=== PATIENT | female | born 2000 | race Caucasian/White ===

== ENCOUNTER 2019-10-31 23:26 | Observation (INO) | payer MEDICAID ==
[~2019-10-31] VITALS: Ht 165.1 cm; Wt 68.0 kg
[2019-11-01] MEDS ORDERED: PREN-182 PO ×2 (00:56→21:53)
== END 2019-11-01 01:30 | disposition home or self-care (01) ==
LOC: 8 EST LDRP 23:26
PROVIDERS: ADMIT Obstetrics & Gynecology; ATTEND Obstetrics & Gynecology
DX: O26.893 Other specified pregnancy related conditions, third trimester (principal); R10.30 Lower abdominal pain, unspecified; Z3A.38 38 weeks gestation of pregnancy
CPT/HCPCS: 99281; G0378

== ENCOUNTER 2019-11-01 20:21 | Observation (INO) | payer MEDICAID ==
[~2019-11-01 20:21] MED LIST: PREN-182 PO
[2019-11-01] MEDS ORDERED: PREN-182 PO (21:53)
== END 2019-11-01 22:50 | disposition home or self-care (01) ==
LOC: 8 EST LDRP 20:21 → INTOOBSV 20:21
PROVIDERS: ADMIT Obstetrics & Gynecology; ATTEND Obstetrics & Gynecology
DX: O26.893 Other specified pregnancy related conditions, third trimester (principal); R10.9 Unspecified abdominal pain; R10.2 Pelvic and perineal pain; Z3A.38 38 weeks gestation of pregnancy
CPT/HCPCS: 99281; G0378

== ENCOUNTER 2019-11-07 19:06 | Inpatient (IN) | payer MEDICAID ==
[~2019-11-07] VITALS: Ht 165.1 cm; Wt 72.6 kg
[2019-11-07] MEDS ORDERED: FERR-71 PO ×2 (20:10)
[2019-11-07] MEDS ORDERED: LACTATED RINGERS 500ML 500 ML IV SCH (20:10)
[2019-11-07] MEDS ORDERED: DEXT 5%/LR + PITOCIN 20UNITS/L 1,000 ML IV SCH (20:10)
[2019-11-07] MEDS ORDERED: BUTORPHANOL TARTRATE 2 MG/ML VIAL IV PRN (20:15)
[2019-11-07] MEDS ORDERED: LIDOCAINE HCL 1% 20ML VIAL (Pyxis) INJ INFIL SCH (20:15)
[2019-11-07] MEDS ORDERED: METHYLERGONOVINE MALEATE 0.2 MG/ML IM PRN (20:15)
[2019-11-07] MEDS ORDERED: NALOXONE HCL 0.4 MG/ML 1ML VIAL IM PRN (20:15)
[2019-11-07 21:11] LABS: BASOPHILS % 0.4 % (0.0-2.0); EOSINOPHILS % 0.6 % (0.0-5.0); HEMATOCRIT. 32.7 % (36.0-48.0); HEMOGLOBIN. 11.3 g/dL (12.0-16.0); LYMPHOCYTES % 23.7 % (20.0-50.0); MEAN CORPUSCULAR VOLUME 83.8 fL (81.0-99.0); MEAN PLATELET VOLUME 9.6 fl (7.4-10.4); MONOCYTES % 7.6 % (2.0-8.0); NEUTROPHILS % 67.7 % (40.0-76.0); PLATELET 217 x1000/uL (130-400); RED CELL DISTRIBUTION WIDTH 13.6 % (11.6-14.6)
[2019-11-07 21:17] LABS: INR 0.9; PARTIAL THROMBOPLASTIN TIME 25.8 sec (23.4-31.0); PROTHROMBIN TIME 9.5 sec (9.6-11.0)
[2019-11-07 21:18] LABS: CLARITY URINE TURBID (CLEAR); COLOR URINE YELLOW (YELLOW); KETONES URINE NEGATIVE (NEGATIVE); LEUKOCYTE ESTERASE URINE NEGATIVE (NEGATIVE); NITRITE URINE NEGATIVE (NEGATIVE); OCCULT BLOOD URINE NEGATIVE (NEGATIVE); PH URINE 7.5 (4.5-8.0); PROTEIN URINE NEGATIVE (NEGATIVE); SPECIFIC GRAVITY URINE 1.015 (1.005-1.030)
[2019-11-07 21:29] LABS: *AMPHETAMINES SCREEN URINE NEGATIVE (NEGATIVE); *BARBITURATES SCREEN URINE NEGATIVE (NEGATIVE); *BENZODIAZEPINES SCREEN URINE NEGATIVE (NEGATIVE); *COCAINE SCREEN URINE NEGATIVE (NEGATIVE); METHADONE URINE SCREEN NEGATIVE (NEGATIVE); OPIATES URINE SCREEN NEGATIVE (NEGATIVE); PHENCYCLIDINE URINE SCREEN NEGATIVE (NEGATIVE)
[2019-11-07 21:30] LABS: CANNABINOID URINE SCREEN NEGATIVE (NEGATIVE)
[2019-11-07 21:52] LABS: HEPATITIS B SURFACE ANTIGEN NEGATIVE
[2019-11-07] MEDS ORDERED: INFLUENZA VIRUS VACCINE(AFLURIA) 0.5ML SYR IM ONE (23:45)
[2019-11-08] MEDS ORDERED: ROPIVACAINE HCL/PF EPIDURAL 200 ML EPI ONE (11:31)
[2019-11-08] MEDS ORDERED: FENTANYL CITRATE/PF 50MCG/ML 2ML VIAL ONE (11:58)
[2019-11-08] MEDS ORDERED: DEXT 5%/LR + PITOCIN 20UNITS/L 1,000 ML IV SCH (12:42)
[2019-11-08] MEDS ORDERED: RHO(D) IMMUNE GLOBULIN 300 MCG/SYR IM PRN (12:45)
[2019-11-08] MEDS ORDERED: IBUPROFEN 400MG TABLET PO PRN (12:45)
[2019-11-08] MEDS ORDERED: IBUPROFEN 800MG TABLET PO PRN (12:45)
[2019-11-08 16:00] VITALS: BP 103/50
[2019-11-08 16:30] VITALS: BP 99/55
[2019-11-08 17:00] VITALS: BP 101/52
[2019-11-08 22:00] VITALS: BP 98/59
[2019-11-09 05:34] VITALS: BP 106/54
[2019-11-09 07:37] LABS: BASOPHILS % 0.3 % (0.0-2.0); EOSINOPHILS % 0.3 % (0.0-5.0); HEMATOCRIT. 29.3 % (36.0-48.0); HEMOGLOBIN. 9.9 g/dL (12.0-16.0); MEAN CORPUSCULAR HEMOGLOBIN 28.5 pg (28.0-32.0); MEAN CORPUSCULAR VOLUME 84.6 fL (81.0-99.0); MEAN PLATELET VOLUME 9.3 fl (7.4-10.4); MONOCYTES % 7.4 % (2.0-8.0); PLATELET 209 x1000/uL (130-400); RED BLOOD CELL COUNT 3.46 mill/uL (4.2-5.4); RED CELL DISTRIBUTION WIDTH 13.6 % (11.6-14.6)
[2019-11-09 10:15] VITALS: BP 110/60
[2019-11-09 22:00] VITALS: BP 105/62
[2019-11-10 06:00] VITALS: BP 103/60
[2019-11-10 08:00] VITALS: BP 104/61
== END 2019-11-10 11:14 | disposition home or self-care (01) | DRG 560 ==
LOC: 8 EST LDRP 19:06 → OBSVTOIN 19:06 → 8EST 11-08 15:30
PROVIDERS: ADMIT Obstetrics & Gynecology; ATTEND Obstetrics & Gynecology
PROC: 10D07Z6 Extraction of Products of Conception, Vacuum, Via Natural or Artificial Opening (ICD-10-PCS; principal; 2019-11-08)
PROC: 00HU33Z Insertion of Infusion Device into Spinal Canal, Percutaneous Approach (ICD-10-PCS; 2019-11-08)
PROC: 3E0R3BZ Introduction of Anesthetic Agent into Spinal Canal, Percutaneous Approach (ICD-10-PCS; 2019-11-08)
PROC: 10907ZC Drainage of Amniotic Fluid, Therapeutic from Products of Conception, Via Natural or Artificial Opening (ICD-10-PCS; 2019-11-08)
DX: O69.1XX0 Labor and delivery complicated by cord around neck, with compression, not applicable or unspecified (principal); Z37.0 Single live birth; Z3A.39 39 weeks gestation of pregnancy
CPT/HCPCS: 36415; 80305; 81003; 85025; 86592; 86703; 86762; 86850; 86900; 87340; 90686; 99281; G0378; J0595; J2310; J2590; J2795; J3010; J3490; J7120; A4315

== ENCOUNTER 2021-12-26 14:19 | Observation (INO) | payer MEDICAID ==
[~2021-12-26] VITALS: Ht 71.1 cm; Wt 58.0 kg
[2021-12-26] MEDS ORDERED: AZITHROMYCIN 500 MG TABLET PO NR (16:30)
[2021-12-26 19:22] LABS: CLARITY URINE CLEAR (CLEAR); COLOR URINE YELLOW (YELLOW); KETONES URINE NEGATIVE (NEGATIVE); LEUKOCYTE ESTERASE URINE 3+ (NEGATIVE); NITRITE URINE NEGATIVE (NEGATIVE); OCCULT BLOOD URINE NEGATIVE (NEGATIVE); PH URINE 6.5 (4.5-8.0); PROTEIN URINE NEGATIVE (NEGATIVE); SPECIFIC GRAVITY URINE 1.007 (1.005-1.030); UROBILINOGEN URINE 0.2 E.U./dL (0.2-1.0)
== END 2021-12-26 17:40 | disposition home or self-care (01) ==
LOC: 8 EST LDRP 14:19
PROVIDERS: ADMIT Obstetrics & Gynecology; ATTEND Obstetrics & Gynecology
DX: O26.893 Other specified pregnancy related conditions, third trimester (principal); R10.9 Unspecified abdominal pain; O62.9 Abnormality of forces of labor, unspecified; Z3A.35 35 weeks gestation of pregnancy
CPT/HCPCS: 59025; 76805; 76818; 81003; G0378; 99281

== ENCOUNTER 2022-01-05 17:52 | Observation (INO) | payer MEDICAID ==
[~2022-01-05] VITALS: Ht 172.7 cm; Wt 70.8 kg
[2022-01-05 19:09] LABS: CLARITY URINE CLEAR (CLEAR); COLOR URINE YELLOW (YELLOW); KETONES URINE NEGATIVE (NEGATIVE); LEUKOCYTE ESTERASE URINE 2+ (NEGATIVE); NITRITE URINE NEGATIVE (NEGATIVE); OCCULT BLOOD URINE NEGATIVE (NEGATIVE); PROTEIN URINE NEGATIVE (NEGATIVE); SPECIFIC GRAVITY URINE 1.015 (1.005-1.030); UROBILINOGEN URINE 0.2 E.U./dL (0.2-1.0)
[2022-01-05] MEDS ORDERED: LACTATED RINGERS 1,000 ML IV ONE (20:45)
[2022-01-05] MEDS ORDERED: CEFAZOLIN 2,000 MG in DEXT 5% WATER 100 ML IV NR (22:00)
[2022-01-05] MEDS ORDERED: ANTIBIOTICS (22:16)
[2022-01-05] MEDS ORDERED: PREN-118 MT (22:16)
[2022-02-09] MEDS ORDERED: IBUP-2028 PO (07:22)
== END 2022-01-05 22:30 | disposition home or self-care (01) ==
LOC: 8 EST LDRP 17:52
PROVIDERS: ADMIT Obstetrics & Gynecology; ATTEND Obstetrics & Gynecology
DX: O26.893 Other specified pregnancy related conditions, third trimester (principal); R10.30 Lower abdominal pain, unspecified; O99.891 Other specified diseases and conditions complicating pregnancy; M54.50 Low back pain, unspecified; Z3A.35 35 weeks gestation of pregnancy
CPT/HCPCS: 59025; 81003; 96365; G0378; J0690; J7060; 96360; 99281

== ENCOUNTER 2022-01-25 15:49 | Observation (INO) | payer MEDICAID, OTHER ==
[~2022-01-25] VITALS: Ht 162.6 cm; Wt 74.4 kg
[~2022-01-25 15:49] MED LIST changes: +ANTIBIOTICS; +PREN-118 MT; -PREN-182 PO
[2022-02-09] MEDS ORDERED: IBUP-2028 PO (07:22)
== END 2022-01-25 19:21 | disposition home or self-care (01) ==
LOC: 8 EST LDRP 15:49
PROVIDERS: ADMIT Obstetrics & Gynecology; ATTEND Obstetrics & Gynecology
DX: O26.893 Other specified pregnancy related conditions, third trimester (principal); R10.9 Unspecified abdominal pain; Z3A.38 38 weeks gestation of pregnancy
CPT/HCPCS: 59025; 76805; 76818; G0378; 99281; G0379